=== PATIENT | female | born 1955 | race Caucasian/White ===

== ENCOUNTER 2023-03-31 06:09 | Emergency (ER) | payer MEDICARE, BC ==
[2023-03-31] MEDS ORDERED: Cyclobenzaprine 10 MG Tab PO ONE (07:12)
[2023-03-31] MEDS ORDERED: HYDROmorphone 0.5 MG/0.5 ML Syringe IVPUSH ONE ×3 (07:12→14:41)
[2023-03-31] MEDS: Sodium Chloride 0.9% 10 ML Syringe FLUSH PRN ×3 (07:26→15:05)
[2023-03-31] MEDS ORDERED: Gadoteridol 279.3 MG/ML 20 ML SDV IV SCH (11:15)
== END 2023-03-31 15:25 | disposition home or self-care (01) ==
LOC: JP.ED 06:09
DX: G89.18 Other acute postprocedural pain (principal); M54.2 Cervicalgia; R51.9 Headache, unspecified; I10 Essential (primary) hypertension; E03.9 Hypothyroidism, unspecified; Z88.1 Allergy status to other antibiotic agents; Z88.8 Allergy status to other drugs, medicaments and biological substances; Z79.899 Other long term (current) drug therapy; Z98.890 Other specified postprocedural states
CPT/HCPCS: 72156; 72156-26; 96374; 96376; 99283; 99283-25; A9270-GY; A9579; J1170; J3490

== ENCOUNTER 2023-07-20 20:12 | Emergency (ER) | payer MEDICARE, BC | END 2023-07-20 21:35 | disposition home or self-care (01) | LOC: JP.ED 20:12 | DX: T63.441A Toxic effect of venom of bees, accidental (unintentional), initial encounter (principal); E03.9 Hypothyroidism, unspecified; I10 Essential (primary) hypertension; Z88.1 Allergy status to other antibiotic agents; Z88.8 Allergy status to other drugs, medicaments and biological substances; Z79.899 Other long term (current) drug therapy; W57.XXXA Bitten or stung by nonvenomous insect and other nonvenomous arthropods, initial encounter | CPT/HCPCS: 99282 ==